=== PATIENT | female | born 1975 | race Hispanic/Latino ===

== ENCOUNTER 2025-02-05 06:11 | Day surgery (SDC) | payer OTHER ==
[2025-02-05] VITALS (10 sets, daily range): BP systolic 103–134; BP diastolic 63–96; PULSE 79–85; RESP 13–18; TEMP 97–98.4
[~2025-02-05] VITALS: Ht 154.9 cm; Wt 95.3 kg
[2025-02-05] MEDS ORDERED: METO-409 PO (07:35)
[2025-02-05] MEDS ORDERED: LIOT5TAB11 PO (07:35)
[2025-02-05] MEDS ORDERED: TIRZ7.5P SQ (07:35)
[2025-02-05] MEDS ORDERED: ESCI-8 PO (07:35)
[2025-02-05] MEDS ORDERED: LEVO88CA5 PO (07:35)
[2025-02-05] MEDS: 0.9%NACL 1000ML 1,000 ML IV ONE (07:49)
--- NOTE | 2025-02-05 10:03 | NUR ---
Full and complete discharge instructions given to Patient and Family both verbally and in writing. Explained GI procedure precautions and follow up. All questions answered. PIV removed with catheter tip intact. Family at bedside appearing supportive. W/C to POV with Family to home
== END 2025-02-05 10:04 | disposition home or self-care (01) ==
LOC: ENDO 06:11 → DAH 06:11 → ENDO 10:04
PROVIDERS: ATTEND Internal Medicine Gastroenterology
DX: D50.9 Iron deficiency anemia, unspecified (principal); D12.3 Benign neoplasm of transverse colon; K31.7 Polyp of stomach and duodenum; K29.70 Gastritis, unspecified, without bleeding; B96.81 Helicobacter pylori [H. pylori] as the cause of diseases classified elsewhere; I89.0 Lymphedema, not elsewhere classified; K57.30 Diverticulosis of large intestine without perforation or abscess without bleeding; I10 Essential (primary) hypertension; E11.9 Type 2 diabetes mellitus without complications; E66.9 Obesity, unspecified; R14.0 Abdominal distension (gaseous); Z68.41 Body mass index [BMI] 40.0-44.9, adult; Z79.899 Other long term (current) drug therapy; Z98.890 Other specified postprocedural states
CPT/HCPCS: 43251; 82948; 81025; 43239; 45380; 45385; J7030 ×2; J3490; J2704; J2371; A4620; A7002